=== PATIENT | female | born 1995 | race Caucasian/White ===

== ENCOUNTER 2017-01-24 16:23 | Emergency (ER) ==
[2017-01-24 16:28] VITALS: BP 109/71
--- NOTE | 2017-01-24 16:41 | PROVIDER DOCUMENTATION ---
HPI-Musculoskeletal Pain/Inj - GENERAL Chief Complaint: Work Related Injury Stated Complaint: work related injury Time Seen by Provider: 01/24/17 16:35 Source: patient - HX OF PRESENT ILLNESS-MUSKULOSKELTAL Nature of Presenting Problem: This pt presents to ED with c/o sharp, right leg pain that started this morning. 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 No obvious injury noted. No other issues or complaints. Quality of Pain: reports: aching Severity in ED: mild Onset/Duration: 24 hours ago Timing: still present Modifying Factors: improves with: movement, palpation Any recent injury?: Yes Locality of Occurance: Work Similar Symptoms Previously?: No Recently seen or treated by another doctor?: No Review of Systems - Adult - REVIEW OF SYSTEMS - ADULT Constitutional: reports: no symptoms reported. denies: chills, fever Eyes: reports: no symptoms reported. denies: discharge, dry eyes Ears, Nose, Mouth & Throat: reports: no symptoms reported. denies: ear discharge, ear pain Cardiovascular: reports: no symptoms reported. denies: chest pain, edema Respiratory: reports: no symptoms reported. denies: chronic cough, cough Gastrointestinal: reports: no symptoms reported. denies: abdominal pain, hematemesis Genitourinary: reports: no symptoms reported. denies: dysuria, discharge Musculoskeletal: reports: muscle aches. denies: bone pain, back pain, joint pain, joint swelling Integumentary: reports: no symptoms reported. denies: hives, hair loss Neurological: reports: no symptoms reported. denies: ataxia, dizziness/vertigo Psychiatric: reports: no symptoms reported. denies: anxiety, anti-depressant use Endocrine: reports: no symptoms reported Hematologic/Lymphatic: reports: no symptoms reported Allergic/Immunologic: reports: no symptoms reported All Other Systems: Reviewed and Negative Past History - Adult - PAST MEDICAL HISTORY-ADULT Review of Records: reports: Old Records Reviewed, Nursing Assessment Review, Medications Reviewed, Social history reviewed & non-contributory. Major Childhood Illnesses: reports: denies history Cardiovascular: reports: denies history Respiratory: reports: asthma Gastrointestinal: reports: denies history Obstetrical/Gynecological: reports: denies history Genitourinary: reports: denies history Musculoskeletal: reports: denies history Neurological: reports: denies history Endocrine/Immune: reports: denies history Other Conditions: reports: denies history - PRIOR SURGERIES/PROCEDURES Surgical/Procedure History: reports: none - IMMUNIZATION STATUS Childhood Immunizations: See Nurse Assessment Flu Vaccine: See Nurse Assessment - FAMILY HISTORY Family History: reviewed, not pertinent Physical Exam-Injury Related - Physical Exam-Injury Related Initial Vital Signs Reviewed: Yes General Appearance: appears well, alert, no apparent distress Eyes: PERRL/EOMI, pink conjunctivae Head, Ears, Nose, Mouth & Throat: normocephalic/atraumatic, moist mucous membranes, normal ENT inspection Neck: non-tender, full range of motion, supple, normal inspection Respiratory: chest non-tender, lungs clear, normal breath sounds, no pleuratic chest pain, no respiratory distress, no accessory muscle use Cardiovascular: normal peripheral pulses, regular rate, rhythm, no edema, no gallop, no JVD, no murmur Abdominal Exam: normal bowel sounds, non tender, soft Back Exam: normal inspection Extremity: normal range of motion, normal gait, normal inspection, tenderness ( mild R medial thigh over sartorius muscle) Integumentary: normal color, warm/dry, blanching. negative: ecchymosis, contusion(s) Neurologic: grossly normal, no motor/sensory deficits. negative: facial droop, focal weakness, motor weakness, sensory deficit Progress - PLAN OF CARE/RESULTS Progress/Plan/Lab Results: Orders Category Date Time Status [facility] URINE DRUG SCREEN Stat Lab 01/24/17 16:42 Uncollected Vital Signs Temp Pulse Resp BP Pulse Ox 01/24/17 16:27 98.7 F 90 18 109/71 100 No Known Allergies Allergy (Verified 01/24/17 16:49) Will have pt f/u c ortho and [facility]. Departure - Departure Time of Disposition Order: 16:50 DIAGNOSIS: Muscle strain of thigh Qualifiers: Encounter type: initial encounter Laterality: right Qualified Code(s): S76.911A - Strain of unspecified muscles, fascia and tendons at thigh level, right thigh, initial encounter Disposition: HOME 01 Certified Medical Emergency: Urgent Condition: Good Additional Instructions: Tylenol and motrin for pain. Place icy-hot patch over the area. Follow up with [facility] and orthopedics as needed. ED Follow Up Instructions: You have been treated by a care provider in the Emergency Department. These instructions are being provided to you so you can have an understanding of how to care for yourself upon discharge. Upon discharge from the Emergency Department, you are responsible for making arrangements for follow-up care by a physician of your choice. Take all prescribed medications as directed. Return to the Emergency Department immediately for any new or worsening symptoms. You may call the Physician Referral phone number at [phone] to obtain a list of Physicians who are taking new patients. Referrals: Cosme Keith MD [Primary Care Provider] - Tra Ballesteros MD [STAFF PHYSICIAN] - Forms: Work Excuse Attestation - Physician/ CONRAD Attestation Patient care was provided by Advanced Practice Provider:: Yes Advanced Practice Provider:: Felipe Arguello Advanced Practice Provider documentation review:: The Mid-level provider documentation, treatment plan and medical decision making was reviewed by the physician who agrees with all treatment and medical decision making by the MLP.
== END 2017-01-24 17:08 | disposition home or self-care (01) ==
LOC: ED 16:23
DX: S76.911A Strain of unspecified muscles, fascia and tendons at thigh level, right thigh, initial encounter (principal); M79.651 Pain in right thigh; M79.1 Myalgia; W18.41XA Slipping, tripping and stumbling without falling due to stepping on object, initial encounter
CPT/HCPCS: 99281

== ENCOUNTER 2019-08-01 00:35 | Inpatient (IN) ==
[2019-08-01 01:22] LABS: URINE SOURCE VOIDED
[2019-08-01 01:55] LABS: BILIRUBIN URINE NEGATIVE (NEGATIVE); BLOOD URINE NEGATIVE (NEGATIVE); CLARITY HAZY (CLEAR); COLOR YELLOW; GLUCOSE URINE NEGATIVE (NEGATIVE); KETONE URINE 1+(Small) mg/dL (NEGATIVE); LEUKOCYTES URINE 1+ (NEGATIVE); NITRITE URINE NEGATIVE (NEGATIVE); PROTEIN URINE 1+(30 mg/dL) mg/dL (NEGATIVE); UROBILINOGEN URINE 12 mg/dL
[2019-08-01 02:04] LABS: UR AMPHETAMINES QUAL NONE DETECTED (NONE DETECT); UR BARBITUATES QUAL NONE DETECTED (NONE DETECT); UR BENZODIAZEPIN QUAL NONE DETECTED (NONE DETECT); UR CANNABINOIDS QUAL NONE DETECTED (NONE DETECT); UR COCAINE QUAL NONE DETECTED (NONE DETECT); UR METHADONE QUAL NONE DETECTED (NONE DETECT); UR METHAMPHETAMINE QUAL NONE DETECTED (NONE DETECT); UR OPIATES QUAL NONE DETECTED (NONE DETECT); UR OXYCODONE QUAL NONE DETECTED (NONE DETECT); UR PCP QUAL NONE DETECTED (NONE DETECT); UR PROPOXYPHENE QUAL NONE DETECTED (NONE DETECT); UR TCA QUAL NONE DETECTED (NONE DETECT)
[2019-08-01] MEDS ORDERED: STADOL IV PRN (02:56)
[2019-08-01] MEDS ORDERED: KEFZOL 1 GM/D5W 1 GM/50 ML IVPB IV PRN (02:56)
[2019-08-01] MEDS ORDERED: TYLENOL PO PRN (02:56)
[2019-08-01] MEDS ORDERED: REGLAN PO PRN (02:56)
[2019-08-01] MEDS ORDERED: PEPCID PO PRN ×2 (02:56)
[2019-08-01] MEDS ORDERED: ZOFRAN IV PRN (02:56)
[2019-08-01] MEDS ORDERED: PEPCID IV PRN (02:56)
[2019-08-01] MEDS ORDERED: PITOCIN 30 UNITS/NS 30 UNIT/500 ML IV.SOLN IV SCH ×2 (03:00→09:00)
[2019-08-01] MEDS ORDERED: SODIUM CHLORIDE 0.9% INJ SCH (03:00)
[2019-08-01] MEDS: LR 1,000 ML IV SCH ×3 (04:08→07:09)
[2019-08-01 04:17] LABS: BASO# 0.03 X1000 (0.0-0.2); BASO% 0.3 % (0.0-0.8); EOS# 0.06 X1000 (0.0-0.7); EOS% 0.5 % (0.0-10.0); HEMATOCRIT 31.9 % (37.0-47.0); HEMOGLOBIN 10.4 g/dL (12.0-16.0); IMM GRAN# 0.04 X1000 (0.0-0.04); IMM GRAN% 0.4 % (0.0-0.5); LYMPH# 2.34 X1000 (1.2-3.4); LYMPH% 21.2 % (20.5-51.1); MCHC 32.6 g/dL (33-37); MCV 91.9 FL (81-99); MONO# 0.89 X1000 (0.11-0.59); MPV 11.9 FL (7.4-10.4); NEUT% 69.6 % (42.2-75.2); PLT 251 X1000 (130-400); RBC 3.47 XMIL (4.2-5.4); RDW 13.3 % (11.5-14.5); WBC 11.06 X1000 (4.8-10.8)
[2019-08-01] MEDS ORDERED: FENTANYL ONE (04:44)
[2019-08-01] MEDS ORDERED: NAROPIN 0.2% ONE (04:44)
[2019-08-01] MEDS ORDERED: FENTANYL-BUPIV-NS 2 MCG-0.1% 250 ML ONE (04:44)
[2019-08-01] MEDS ORDERED: SODIUM CHLORIDE 0.9% 10 ML ONE ×2 (04:57→06:13)
[2019-08-01] MEDS ORDERED: NEO-SYNEPHRINE ONE (04:57)
[2019-08-01] MEDS ORDERED: FENTANYL IV ONE (05:15)
[2019-08-01] MEDS ORDERED: NAROPIN 0.2% INJ ONE (05:15)
--- NOTE | 2019-08-01 05:31 | HISTORY AND PHYSICAL ---
HISTORY OF PRESENT ILLNESS: Irlanda is a 24-year-old, 2, para 1, at 39 weeks gestation, who presented to Labor and Delivery complaining of leakage of fluid. She states that the leakage of fluid has been going on for approximately 10 hours, began at 3 p.m. on the day prior to admission. PREVIOUS MEDICAL HISTORY: Pertinent for anxiety disorder. SOCIAL HISTORY: Negative for smoking, alcohol, or drugs. FAMILY HISTORY: Pertinent for cervical cancer. MEDICINES: vitamins. ALLERGIES: To medicines none. SURGICAL HISTORY: Negative. REVIEW OF SYSTEMS: Negative for chest pain, shortness of breath, headache, cough, runny nose, fever, sore throat. PHYSICAL EXAM: GENERAL: This is a well-developed, well-nourished woman appearing her stated age. LUNGS: Unlabored breathing. HEART: Regular rate and rhythm. ABDOMEN: Gravid and obese. EXTREMITIES: Without clubbing, cyanosis, or edema. PELVIC: 3 to 4 cm per RN. ASSESSMENT: A 24-year-old 2, para 1, uncomplicated history, presents at 39 weeks with rupture of membranes. 1. heart tones category 1. 2. Rubella nonimmune. 3. Potentially ruptured for 10 hours plus. Start oxytocin. 4. Anticipate epidural p.r.n. 5. Anticipate normal spontaneous vaginal delivery.
[2019-08-01] MEDS ORDERED: FENTANYL-BUPIV-NS 2 MCG-0.1% 250 ML EPIDURAL SCH (06:00)
[2019-08-01] MEDS ORDERED: NAROPIN 0.5% ONE (06:13)
[2019-08-01] MEDS ORDERED: XYLOCAINE-MPF 1% INJ ONE (07:25)
[2019-08-01] MEDS ORDERED: MINERAL OIL PO ONE (07:25)
[2019-08-01] MEDS ORDERED: BOOSTRIX VACCINE IM ONE (08:55)
[2019-08-01] MEDS ORDERED: CYTOTEC PO PRN (08:55)
[2019-08-01] MEDS ORDERED: HYDROXYZINE IM PRN (08:55)
[2019-08-01] MEDS ORDERED: PERI MEDS (DERMOPLAST/NUPERCAINAL/TUCKS) MISC PRN (08:55)
[2019-08-01] MEDS ORDERED: XYLOCAINE-MPF 1% INJ PRN (08:55)
[2019-08-01] MEDS ORDERED: BENADRYL PO PRN (08:55)
[2019-08-01] MEDS ORDERED: M-M-R II VACCINE SUBQ ONE (08:55)
[2019-08-01] MEDS ORDERED: AMBIEN PO PRN (08:55)
[2019-08-01] MEDS ORDERED: ATARAX PO PRN (08:55)
[2019-08-01] MEDS ORDERED: PITOCIN IM PRN (08:55)
[2019-08-01] MEDS ORDERED: BENADRYL IV PRN (08:55)
[2019-08-01] MEDS ORDERED: MYCOLOG OINTMENT TOP SCH (09:00)
[2019-08-01] MEDS ORDERED: PITOCIN 20 UNITS/NS 20 UNITS/1,000 ML IV.SOLN IV SCH (09:00)
[2019-08-01] MEDS ORDERED: DIFLUCAN PO ONE (09:15)
--- NOTE | 2019-08-01 09:30 | OPERATIVE NOTE ---
PROCEDURE DATE: 08/01/2019 PROCEDURE PERFORMED: Normal spontaneous vaginal delivery. ANESTHESIA: Epidural. ESTIMATED BLOOD LOSS: 200 mL. COMPLICATIONS: None. FINDINGS: A liveborn female weighing 6 pounds 5 ounces, Apgars of 8 and 10. PROCEDURE IN DETAIL: Patient was placed in the lithotomy position and pushed well during the 2nd stage of labor. Baby crowned and delivered with an MANPREET position. Anterior shoulder was delivered, followed by the posterior shoulder. The cord was clamped and cut by the father. The cord blood was then obtained. Placenta was delivered intact via Schultze presentation and it had a three-vessel cord. The perineum was inspected and found to have a second-degree laceration which was repaired with 3-0 Vicryl in the usual fashion. The patient tolerated the procedure well. cc: Larry Pinon DO
[2019-08-01] MEDS ORDERED: PITOCIN 20 UNITS/NS 20 UNITS/1,000 ML IV.SOLN ONE (09:31)
[2019-08-01] MEDS: MOTRIN PO PRN (14:13)
[2019-08-01] MEDS: LOTRISONE CREAM TOP SCH ×2 (15:00→20:45)
[2019-08-01] MEDS ORDERED: DIFLUCAN PO SCH (15:30)
[2019-08-01] MEDS: PERICOLACE PO SCH (20:45)
[2019-08-02] MEDS: MOTRIN PO PRN ×2 (05:22→20:57)
[2019-08-02 06:59] LABS: BASO# 0.02 X1000 (0.0-0.2); BASO% 0.2 % (0.0-0.8); EOS% 0.9 % (0.0-10.0); HEMATOCRIT 31.5 % (37.0-47.0); HEMOGLOBIN 9.9 g/dL (12.0-16.0); IMM GRAN# 0.03 X1000 (0.0-0.04); IMM GRAN% 0.3 % (0.0-0.5); LYMPH# 1.85 X1000 (1.2-3.4); LYMPH% 15.8 % (20.5-51.1); MCH 29.7 PG (27-31); MCHC 31.4 g/dL (33-37); MCV 94.6 FL (81-99); MONO# 0.87 X1000 (0.11-0.59); MONO% 7.4 % (1.7-9.3); MPV 11.9 FL (7.4-10.4); NEUT# 8.84 X1000 (1.4-6.5); NEUT% 75.4 % (42.2-75.2); PLT 201 X1000 (130-400); RBC 3.33 XMIL (4.2-5.4); RDW 13.5 % (11.5-14.5); WBC 11.71 X1000 (4.8-10.8)
[2019-08-02] MEDS: PRECARE PO SCH (08:53)
[2019-08-02] MEDS: LOTRISONE CREAM TOP SCH ×2 (08:54→20:57)
[2019-08-02] MEDS: FERROUS SULFATE PO SCH (08:54)
[2019-08-02] MEDS: PERICOLACE PO SCH (20:57)
--- NOTE | 2019-08-03 08:24 | OB/GYN PROGRESS NOTE ---
Progress Note OB - . OB Progress Note: Vital Signs - 24 hr 08/02/19 16:15 08/02/19 20:00 08/03/19 02:18 Temperature 97.0 F L 97.7 F 97.0 F L Pulse Rate 79 94 H 87 Respiratory Rate 16 18 18 Blood Pressure 140/91 130/79 122/87 O2 Sat by Pulse Oximetry 100 100 99 24 yo PPD#2 s/p with groin yeast infection, RNI, obesity, anemia. Patient seen and examined, doing well. Her pain is controlled. She is ambulating and voiding without difficulty. She is tolerating a regular diet and denies N/V. She notes normal lochia. She still complains of groin rash and itching, but states it has improved with Diflucan and lotrisone cream. She is . She is undecided on PP contracetion, considering POPs. Physical Exam-General - PHYSICAL EXAM-ADULT Initial Vital Signs Reviewed: Yes - CONSTITUTIONAL General Appearance: appears well, alert, no apparent distress - EYES Eyes: PERRL/EOMI - HEAD, EARS, NOSE, MOUTH & THROAT HENMT: normocephalic/atraumatic - RESPIRATORY Respiratory: normal breath sounds, no respiratory distress - CARDIOVASCULAR Cardiovascular: regular rate, rhythm - GASTROINTESTINAL (ABDOMEN) Abdominal Exam: normal bowel sounds, non tender, soft, other (fundus firm, below umbilicus) - MUSCULOSKELETAL Extremity: normal range of motion, non-tender - PSYCHIATRIC Psych/Mental Status: normal mood/affect Assessment/Plan - Assessment/Plan Assessment: 24 yo PPD#2 s/p with RNI, groin intertrigo, obesity, anemia 1. HD stable, afebrile. PP Hgb 9.9/31.5. Daily ferrous sulfate 325mg. 2. Repeat diflucan dose on Thursday 08/09, continue lotrisone cream BID x 7 days 3. Undecided on PP contraception, considering POPs 4. MMR prior to discharge 5. D/C home today, follow-up in 6 weeks Suzan Don DO
[2019-08-03 08:37] VITALS: BP 124/76
[2019-08-03] MEDS: FERROUS SULFATE PO SCH (09:32)
[2019-08-03] MEDS: PRECARE PO SCH (09:32)
[2019-08-03] MEDS: LOTRISONE CREAM TOP SCH (09:32)
--- NOTE | 2019-08-04 12:42 | DISCHARGE SUMMARY ---
ADMISSION DATE: 08/01/2019 DISCHARGE DATE: 08/03/2019 ATTENDING PHYSICIAN: Dr. Noelle Johansen. ADMITTING PHYSICIAN: Dr. Lance Maria. CONDITION ON DISCHARGE: Stable. FINAL DIAGNOSES: 1. A 24-year-old, G2, P2-0-0-2, day #2, status post spontaneous vaginal delivery at 39 weeks. 2. Intertrigo yeast infection. 3. Rubella nonimmune. 4. Obesity. 5. Anemia. PROCEDURES: Spontaneous vaginal delivery. HISTORY OF PRESENT ILLNESS: The patient is a 24-year-old, G2, P1-0-0-1, at 39 weeks gestation, who presented to Labor and Delivery complaining of leaking of fluid. She states that the leaking had been going on for approximately 10 hours. Decision was made to admit the patient for spontaneous rupture of membranes, and augment labor with Pitocin. She underwent normal spontaneous vaginal delivery on 08/01/2019. She had a routine course. During delivery, it was noted that the patient had an erythematous and pruritic rash in her groin area. She was treated for an intertrigo yeast infection with Diflucan, and plan to repeat dose of Diflucan in 1 week. She was also treated with Lotrisone cream b.i.d. for 1 week. On day 2, she was deemed stable for discharge. She is ambulating and voiding without difficulty. Her pain is controlled. She is tolerating a regular diet. She has normal lochia. She is . She is undecided on contraception, but considering progesterone only pills. She received MMR vaccine prior to hospital discharge. DISCHARGE MEDICATIONS: 1. Diflucan 150 mg p.o. x1 on 08/09/2019. 2. Lotrisone cream applied topically b.i.d. for 7 days. 3. Motrin 800 mg p.o. every 8 hours p.r.n. pain. 4. Ferrous sulfate 325 mg p.o. daily. DISCHARGE INSTRUCTIONS: The patient was instructed to follow up with Dr. Johansen in 6 weeks for a visit. She was instructed to notify physician of a temperature greater than 100.4 degrees Fahrenheit, severe abdominal pain, abnormal vaginal discharge, or heavy vaginal bleeding of greater than 1 pad an hour. [facility]
== END 2019-08-03 11:20 | disposition home or self-care (01) | DRG 806 ==
LOC: P.OPLD 00:35 → P.LD 00:40
PROVIDERS: ADMIT Obstetrics & Gynecology; ATTEND Obstetrics & Gynecology